=== PATIENT | male | born 1955 | race Caucasian/White ===

== ENCOUNTER 2016-10-05 10:36 | Outpatient (CLI) | payer MEDICAID, MEDICARE | END 2016-10-05 23:59 | DX: Z00.00 Encounter for general adult medical examination without abnormal findings (principal); Z51.81 Encounter for therapeutic drug level monitoring; Z12.5 Encounter for screening for malignant neoplasm of prostate; E78.5 Hyperlipidemia, unspecified | CPT/HCPCS: 36415; 80053; 80061; 84443; 85025; G0103 ==

== ENCOUNTER 2018-09-20 10:33 | Outpatient (CLI) | payer MEDICARE ==
--- NOTE | 2018-09-20 15:19 | Ultrasound Report ---
Reason: SOFT TISSUE MASS Procedure Date: 09/20/2018 Accession Number: [id number] / [id number] Procedure: US - Chest CPT Code: FULL RESULT: EXAM: CHEST ULTRASOUND EXAM DATE: 09/20/2018 11:13 AM. CLINICAL HISTORY: SOFT TISSUE MASS overlying left scapula. COMPARISON: None. TECHNIQUE: Real-time scanning by the senior oracle applications developer was saved static images reviewed. FINDINGS: Corresponding to the palpable lump is a 13 x 12 x 2.2 cm avascular predominantly isoechoic mass, likely a lipoma. No fluid collection is seen. IMPRESSION: 13 x 12 x 2.2 cm mass corresponds to the left scapular palpable finding, likely a lipoma. [facility]
== END 2018-09-20 10:34 | disposition home or self-care (01) ==
LOC: DI 10:33
PROVIDERS: ATTEND Family Medicine
DX: M79.9 Soft tissue disorder, unspecified (principal)
CPT/HCPCS: 76604

== ENCOUNTER 2018-12-17 08:00 | Outpatient (CLI) | payer MEDICARE, OTHER | END 2018-12-17 08:01 | disposition home or self-care (01) | LOC: LAB.WCP 08:00 | PROVIDERS: ATTEND Family Medicine | DX: M79.604 Pain in right leg (principal) | CPT/HCPCS: 36415; 85379 ==

== ENCOUNTER 2018-12-17 12:12 | Outpatient (CLI) | payer MEDICARE, OTHER ==
--- NOTE | 2018-12-17 15:57 | XRAY Report ---
Reason: KNEE JOINT PAIN,RIGHT Procedure Date: 12/17/2018 Accession Number: [id number] / [id number] Procedure: WCP - Knee 2 View RT CPT Code: FULL RESULT: EXAM: RIGHT KNEE RADIOGRAPHY. EXAM DATE: 12/17/2018 12:23 PM. CLINICAL HISTORY: Knee joint pain, right. COMPARISON: None. TECHNIQUE: 2 views. FINDINGS: Bones: Operative changes of total knee arthroplasty with anatomic alignment of the arthroplasty components. No evidence of fracture. Joints: Small suprapatellar effusion. Soft Tissues: Mild soft tissue swelling in the region of the prepatellar bursa. IMPRESSION: No fractures. [facility]
== END 2018-12-17 12:13 | disposition home or self-care (01) ==
LOC: DI.WCP 12:12
PROVIDERS: ATTEND Family Medicine
DX: M25.561 Pain in right knee (principal); M79.604 Pain in right leg
CPT/HCPCS: 36415; 85379

== ENCOUNTER → 2019-09-16 | Outpatient (CLI) | payer MEDICARE, OTHER ==
[2019-09-16 11:57] LABS: BASOPHILS # (AUTO) 0.1 10^3/uL (0.0-0.1); BASOPHILS % (AUTO) 1.1 %; EOSINOPHILS # (AUTO) 0.4 10^3/uL (0.0-0.7); EOSINOPHILS % (AUTO) 5.1 %; HGB - HEMOGLOBIN 15.5 g/dL (14.0-18.0); LYMPHOCYTES # (AUTO) 1.3 10^3/uL (1.5-3.5); LYMPHOCYTES % (AUTO) 15.3 %; MEAN CORPUSCULAR HEMOGLOBIN 31.6 pg (27.0-31.0); MEAN CORPUSCULAR HGB CONC 32.6 g/dL (32.0-36.0); MEAN CORPUSCULAR VOLUME 96.9 fL (80.0-94.0); MEAN PLATELET VOLUME 9.5 fL (7.4-11.4); MONOCYTES # (AUTO) 0.7 10^3/uL (0.0-1.0); MONOCYTES % (AUTO) 8.5 %; NEUTROPHILS # (AUTO) 5.7 10^3/uL (1.5-6.6); NEUTROPHILS % (AUTO) 69.8 %; PLT - PLATELET COUNT 246 10^3/uL (130-450); RED CELL DISTRIBUTION WIDTH 12.5 % (12.0-15.0); WHITE BLOOD COUNT 8.2 x10^3/uL (4.8-10.8)
[2019-09-16 12:33] LABS: ALBUMIN 4.1 g/dL (3.2-5.5); ALBUMIN/GLOBULIN RATIO 1.5 (1.0-2.2); ALKALINE PHOSPHATASE 84 IU/L (42-121); ALT ALANINE AMINOTRANSFERASE 26 IU/L (10-60); AST ASPARTATE AMINOTRANSFERASE 22 IU/L (10-42); BILIRUBIN,TOTAL 0.7 mg/dL (0.2-1.0); BUN - BLOOD UREA NITROGEN 13 mg/dL (6-20); CALCIUM 9.9 mg/dL (8.5-10.3); CARBON DIOXIDE - CO2 26 mmol/L (21-32); CHLORIDE 105 mmol/L (101-111); CHOL/HDL RATIO 4.5 (<5.0); CHOLESTEROL 234 mg/dL; CREATININE 0.9 mg/dL (0.6-1.2); GFR - MDRD 85 (>89); GLUCOSE 109 mg/dL (70-100); HDL CHOLESTEROL 52 mg/dL; LDL CHOLESTEROL,CALCULATED 163 mg/dL; LDL/HDL RATIO 3.1 (<3.6); SODIUM 138 mmol/L (135-145); TOTAL PROTEIN 6.8 g/dL (6.7-8.2); VLDL CHOLESTEROL 19 mg/dL
== END ==
LOC: LAB.WCP 09:10
PROVIDERS: ATTEND Nurse Practitioner Family
DX: I10 Essential (primary) hypertension (principal); E78.5 Hyperlipidemia, unspecified
CPT/HCPCS: 36415; 80053; 80061; 83721; 85025

== ENCOUNTER 2019-09-18 12:39 | Outpatient (CLI) | payer MEDICARE, OTHER ==
[2019-09-18] MEDS ORDERED: IOVERSOL 320 100 ML VIAL IVP ONE ×2 (12:51→13:14)
--- NOTE | 2019-09-18 14:04 | CT Report ---
Reason: PAROTID GLAND SWELLING Procedure Date: 09/18/2019 Accession Number: [id number] / [id number] Procedure: CT - SOFT TISSUE NECK W CPT Code: Final Report FULL RESULT: EXAM: CT SOFT TISSUE NECK WITH CONTRAST. EXAM DATE: 09/18/2019 01:11 PM. HISTORY: Left parotid gland swelling for 1 week. COMPARISONS: None. TECHNIQUE: Routine soft tissue neck CT protocol with contrast. Reconstructions: Coronal and sagittal. IV contrast: 80 cc Optiray 320. In accordance with CT protocol optimization, one or more of the following dose reduction techniques were utilized for this exam: automated exposure control, adjustment of mA and/or KV based on patient size, or use of iterative reconstructive technique. FINDINGS: Visualized Intracranial Contents: Unremarkable. Orbits: Unremarkable. Note is made of left lens removal. Sinuses: Near-complete opacification is seen involving bilateral frontal, bilateral ethmoid, and left sphenoid sinuses. Mild mucosal thickening is seen in the right sphenoid and bilateral maxillary sinuses. Soft tissue opacity is seen in the superior nasal cavity bilaterally. No associated bone destruction is seen. The mastoid air cells and middle ear cavities are clear. Oral cavity: Metallic artifact from dentition partially obscures the oral cavity. The floor of the mouth is symmetric. Pharynx: Pharyngeal mucosa is unremarkable. The spray dyer spaces and pterygopalatine fossa are unremarkable. The infratemporal fossa, parapharyngeal spaces, and retropharyngeal space are unremarkable. The base of the tongue is symmetric and unremarkable. The airway is patent. Larynx: Larynx and supraglottic airway are patent without mass lesion. Vocal cords are symmetric. The visualized trachea is unremarkable. Parotid and Submandibular Glands: There is an ill-defined isodense to muscle mass inferiorly in the superficial lobe of the left parotid gland. This measures 12 x 13 x 11 mm in size. No calculi or ductal dilatation is seen. The right parotid gland and bilateral submandibular glands are unremarkable. Lymph Nodes: No enlarged lymph nodes are identified in the cervical, supraclavicular, and visualized superior mediastinal regions. Soft tissues: Soft tissues are unremarkable. No mass lesion or abnormal enhancement. Vascular Structures: Patent and unremarkable. Thyroid Gland: Normal. Lung: The visualized lung apices are clear. Bones: There is mild compression deformity of the T1 vertebral body superior endplate. No cortical disruption is appreciated. No surrounding soft tissue swelling is seen. This suggests sequela of old injury. Mild to moderate degenerative disk and uncovertebral change is seen at C5-C6 and C6-C7. Other: None. IMPRESSION: 1. Slightly ill-defined lobular 12 x 11 x 13 mm isodense to muscle mass inferiorly in the left lobe of the parotid gland. Benign or malignant parotid tumor is in the differential. Further evaluation with ultrasound could be considered. 2. No abnormal cervical lymphadenopathy. [facility]
== END 2019-09-18 12:40 | disposition home or self-care (01) ==
LOC: DI 12:39
PROVIDERS: ATTEND Nurse Practitioner Family
DX: K11.8 Other diseases of salivary glands (principal)
CPT/HCPCS: 70491; Q9967

== ENCOUNTER 2019-09-28 12:56 | Outpatient (CLI) | payer MEDICARE, OTHER ==
--- NOTE | 2019-09-28 23:35 | Ultrasound Report ---
Reason: PAROTID BLAND SWELLING/MASS Procedure Date: 09/28/2019 Accession Number: [id number] / [id number] Procedure: US - Head or Neck Soft Tissue CPT Code: Final Report FULL RESULT: EXAM: HEAD AND NECK SOFT TISSUE ULTRASOUND EXAM DATE: 09/28/2019 01:00 PM. CLINICAL HISTORY: PAROTID GLAND SWELLING/MASS. COMPARISON: NECK SOFT TISSUE W/ 09/18/2019 1:08 PM. TECHNIQUE: Real time sonographic imaging of the left parotid gland were obtained with static images submitted for review. FINDINGS: Within the left parotid gland is a predominantly hypoechoic lesion with peripheral a peripheral area of increased echogenicity measuring 0.9 x 1.1 x 0.5 cm. Minimal internal vascularity is seen. The surrounding gland appears normal. Comparison views of the right parotid gland are normal and without evidence of similar-appearing lesion. IMPRESSION: Predominantly hypoechoic left parotid gland lesion with minimal internal vascularity. The differential considerations are unchanged compared to the prior CT, which include benign and malignant parotid tumors. [facility]
== END 2019-09-28 12:57 | disposition home or self-care (01) ==
LOC: DI 12:56
PROVIDERS: ATTEND Nurse Practitioner Family
DX: K11.8 Other diseases of salivary glands (principal)
CPT/HCPCS: 76536